=== PATIENT | female | born 1950 | race Caucasian/White ===

== ENCOUNTER 2016-02-23 06:39 | Observation (INO) | payer OTHER ==
--- NOTE | ~2016-02-23 | CR72 ---
[facility] A Service of [facility] & [facility] RADIOLOGY TEXT RESULTS PATIENT: DAIN GOULD LOCATION: [facility] [id number] : [birth year] UNIT #: [id number] AGE: [address]: Joseph May MD SEX: F ORDER DR: [id number] [facility] [address] [place], [place] [address] [id number] MR#: [id number] Acc #: [id number] NAME: DAIN GOULD. : 1950 SEX: F STUDY DATE/TIME: 02/23/2016 6:15 UNIT: [facility] ROOM: 53719 STUDY DESCRIPTION: CR Chest Single View Portable Attending Physician: Joseph May M.D. Ordering Physician: Erik Zhang M.D. Primary Care Physician: Igor Pisano M.D. MEDICAL IMAGING REPORT This report is preliminary unless electronic signature is present EXAM Portable chest INDICATION Shortness of breath for 3 hours. FINDINGS Comparison is made to prior exam from April 07, 2007. Cardiomegaly is identified although I do not see any evidence of vascular congestion. There is no pneumothorax or definite pleural effusion. There is elevation of the right hemidiaphragm with some associated bronchovascular crowding. This is stable when compared to April 07, 2007. Overall, lung volumes appear diminished slightly secondary to poor inspiratory effort. Dictated by... Tana Estevez M.D. THIS IS AN ELECTRONICALLY VERIFIED REPORT Tana Estevez M.D. at 02/23/2016 12:10 PM AFF/antonino TD: 02/23/2016 11:34 JOB #: [id number] MEDICAL IMAGING REPORT COPY
--- NOTE | ~2016-02-23 | HP ---
Unit #: [id number] #: [id number] Patient: DAIN GOULD [id number] [address] [place], [place] [address] [id number] MR#: [id number] NAME: DAIN GOULD. ROOM: 77656 Age: 65 Sex: F Admission Date: 02/23/2016 : 1950 Attending Physician: Joseph May M.D. Primary Care Physician: Igor Pisano M.D. HISTORY AND PHYSICAL ADDENDUM The patient underwent a Lexiscan Cardiolite stress test which, per Dr. May, is normal. A 2D echocardiogram has been ordered for the patient and she will be discharged after this is completed. The patient has had no more reports of chest pain in the emergency department. The patient's troponins have been negative. DISCHARGE FOLLOWUP INSTRUCTIONS 1. She will be discharged home. 2. She can follow up with Dr. Hutson in three to four weeks. 3. Healthy heart diet. 4. She is advised to quit smoking. DISCHARGE MEDICATIONS 1. Tylenol 650 mg p.o. q.6 hours p.r.n. pain. 2. Wellbutrin XL 200 mg p.o. b.i.d. 3. Tenormin 25 mg p.o. daily. 4. Lasix 20 mg p.o. daily. 5. Lipitor 10 mg p.o. at bedtime. 6. Lipitor 20 mg p.o. daily. 7. NovoLog 70/30 60 units subcu b.i.d. 8. Aspirin 81 mg p.o. daily. 9. Potassium 20 mEq p.o. daily. 10. Biotin 10,000 mcg p.o. daily. 11. Vitamin D 50,000 units p.o. weekly. Dictated by Dahlia Dorantes A.P.R.N. for Joseph May M.D. AM/fernanda TD: 02/23/2016 14:30 JOB #: [id number] Unit #: [id number] #: [id number] Patient: DAIN GOULD HISTORY AND PHYSICAL X Dahlia Dorantes APRN X HISTORY AND PHYSICAL
--- NOTE | ~2016-02-23 | EKG ---
PATIENT: DAIN GOULD UNIT #: [id number] Ventricular Rate: 77 BPM Atrial Rate: 77 BPM P-R Interval: 144 ms QRS Duration: 88 ms Q-T Interval: 410 ms QTC Calculation(Bezet): 463 ms P [place]: 4 degrees Calculated R [place]: 18 degrees Calculated T [place]: 49 degrees Diagnosis Line: Normal sinus rhythm Diagnosis Line: Nonspecific ST abnormality Diagnosis Line: Abnormal ECG Diagnosis Line: No previous ECGs available Diagnosis Line: Confirmed by OFELIA PARRA MD ([id number]) on Diagnosis Line: 02/24/2016 7:09:43 PM INTERPRETING MD: AIDA BEAR
--- NOTE | ~2016-02-23 | HP ---
Unit #: [id number] #: [id number] Patient: DAIN GOULD [id number] [address] [place], [place] [address] [id number] I MR#: [id number] NAME: DAIN GOULD. ROOM: 58284 Age: 65 Sex: F Admission Date: 02/23/2016 : 1950 Attending Physician: Joseph May M.D. Primary Care Physician: Igor Pisnao M.D. HISTORY AND PHYSICAL CHIEF COMPLAINT Chest pain. HISTORY OF PRESENT ILLNESS The patient is a 65-year-old female who does not have a flame degreaser. In 2007, the patient did undergo a cardiac catheterization by Dr. Flores and was found to have nonobstructive coronary artery disease and a normal LVEF. Additional past medical history includes hypertension, hyperlipidemia, diabetes with insulin dependence, obstructive sleep apnea with CPAP compliance, obesity, pedal edema and history of breast cancer with radiation in 2005. The patient presented to the ER this morning. The patient reports last night before she went to bed she just felt uncomfortable. She was unable to find a position that she could sleep well in. Initially, she started to have some dull left arm pain. When she got up and walked around her room, she felt a dull chest pressure, mid sternal chest pressure, that radiated to her neck. At the worst, it was 7/10. Nothing relieved her pain. The patient presented to the emergency room. The patient did not report any associated symptoms. She had no nausea, no shortness of breath, diaphoresis, palpitations or dizziness. In the emergency department, the patient received two sublingual nitro and her pain was relieved. Her EKG shows normal sinus rhythm with nonspecific ST-T wave abnormalities at 77 beats per minute. Point of care troponins have been less than 0.05 x2. PAST MEDICAL HISTORY 1. Cardiac catheterization in 2007 showed nonobstructive disease. Left main, LAD, left circumflex all have luminal irregularities. RCA is codominant with luminal irregularities. Her LVEF was also normal. 2. Diabetes with insulin dependence. 3. Hypertension. 4. Hyperlipidemia. 5. Obesity. 6. Obstructive sleep apnea with CPAP compliance. 7. Pedal edema. PAST SURGICAL HISTORY 1. Lap band in 2014 which is now not inflated. 2. Paraesophageal hernia repair in 2014. 3. Cervical diskectomy. 4. Lumbar laminectomy x2. 5. . Unit #: [id number] #: [id number] Patient: DAIN GOULD 6. Bilateral carpal tunnel syndrome. 7. Breast lumpectomy which was found to have cancer. She received radiation in 2016. ALLERGIES Penicillin and codeine. HOME MEDICATIONS 1. Zestril 20 mg p.o. daily. 2. Klor-Con 20 mEq p.o. daily. 3. Tenormin 12.5 mg p.o. daily. 4. Wellbutrin-XL 200 mg p.o. b.i.d. 5. NovoLog 70/30, 60 units subcu b.i.d. 6. Lasix 40 mg p.o. daily. 7. Vitamin D 5000 units p.o. weekly. 8. Lipitor 10 mg p.o. daily. 9. Biotin 10,000 mcg p.o. daily. 10. Aspirin 81 mg p.o. daily. FAMILY HISTORY Patient reports that her father had coronary artery disease and atrial fibrillation. 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 She denies any alcohol or illicit drug abuse. She smokes about a half a pack per day and has smoked for 40 years. She is not currently regulating her diet. REVIEW OF SYSTEMS CONSTITUTIONAL: The patient denies fever or chills. HEENT: The patient denies sore throat, ear pain or runny nose. CARDIOVASCULAR: Patient endorses chest pain. Denies irregular rhythm or palpitations. CHEST: The patient denies shortness of breath, cough or hemoptysis. GI: The patient denies nausea, vomiting, diarrhea, chronic constipation or hematochezia. ENDO: The patient denies history of increased thirst or urination. No recent significant weight loss or gain. : The patient denies dysuria, frequency or hematuria. SKIN: Denies any unusual rashes or lesions. HEMATOLOGIC: Denies any increased bleeding or bruising. MUSCULOSKELETAL: Denies any hot, swollen joints. No generalized muscle pain. NEURO: Denies problems with speech or vision. No frequent severe headaches. No numbness, tingling or weakness in any extremity. Denies loss of bowel or bladder control. Denies dizziness. PHYSICAL EXAMINATION GENERAL: The patient is a pleasant 65-year-old female who is awake, alert, in no acute distress. VITAL SIGNS: Temperature 98.3, heart rate 75, respirations 16, blood pressure 95/51. HEENT: Head is atraumatic, normocephalic. Pupils equal, round, reactive. Extraocular movements are intact. No discharge from ears or nose. NECK: Supple. Trachea is midline. CHEST: Lungs are clear to auscultation bilaterally. No wheezes, rales or rhonchi. Unit #: [id number] #: [id number] Patient: DAIN GOULD CARDIOVASCULAR: S1, S2. Regular rate and rhythm. No murmurs, rubs or gallops appreciated. ABDOMEN: Soft, nontender, nondistended. Bowel sounds are positive in all four quadrants. No hepatosplenomegaly is appreciated. : Not done. EXTREMITIES: No clubbing or cyanosis. The patient has +1 bilateral lower extremity edema. NEUROLOGICAL: The patient is alert and oriented x4. She is pleasant and conversant. No focal defects. Cranial nerves II-XII intact. DIAGNOSTIC STUDIES LABORATORY: Glucose 288, BUN 11, creatinine 1.1, sodium 135, potassium 3.6, chloride 102, CO2 25, INR 0.9. Point of care troponins in the emergency department were less than 0.05. White blood cells 11.6, hemoglobin 13, hematocrit 39.4, platelets 278. CARDIOVASCULAR: EKG shows normal sinus rhythm with nonspecific ST-T wave abnormality. ASSESSMENT 1. Chest pain. 2. Non-obstructive coronary artery disease with history of cath in 2007 with luminal irregularities. 3. Hypertension. 4. Hyperlipidemia. 5. Diabetes with insulin dependence. 6. Obesity with a body mass index greater than 30. 7. Obstructive sleep apnea with CPAP compliance. 8. Mild bilateral lower extremity edema. 9. History of breast cancer, status post radiation in 2005. 10. Family history of coronary artery disease and atrial fibrillation. 11. Tobaccoism. PLAN Will make patient NPO now and will do a Lexiscan Cardiolite stress test. Will obtain a 2D echocardiogram. Will do Accu-Cheks a.c. and h.s. Will check a TSH, lipid panel, hemoglobin A1c and will start Imdur 20 mg p.o. daily. Will give parameters for atenolol and hold for heart rate less than 60 or systolic blood pressure less than 100. Have encouraged lifestyle modifications through diet control and I have encouraged patient to quit smoking. I have discussed this case with Dr. May, he is agreeable to the above plan. Dictated by Dahlia Dorantes A.P.R.N. for Joseph May M.D. AM/fernanda TD: 02/23/2016 11:01 JOB #: [id number] Unit #: [id number] #: [id number] Patient: DAIN GOULD HISTORY AND PHYSICAL X Dahlia Dorantes APRN X HISTORY AND PHYSICAL
[~2016-02-23 06:39] MED LIST: ACTOS PO; ADDERALL 20 MG PO; ATENOLOL PO; CHANTIX PO; GLUCOVANCE PO; GLYBURIDE PO; IBUPROFEN PO; JANUVIA PO; KCL PO; LASIX PO; LISINOPRIL PO; MAXZIDE 75/50 T1 TAB PO; METFORMIN PO; NEXIUM PO; NOVOLOG MIX 70/33 ML INJ; NOVOLOG7030 SUBQ; PROTONIX PO; PROZAC PO; ULTRAM PO; WELLBUTRIN XL PO; ZOCOR PO
[2016-02-23 06:46] LABS: POC - CKMB 4.7 ng/mL (0.0-7.9); POC - TROPONIN <0.05 ng/mL (<=0.05)
[2016-02-23 06:55] LABS: BASOPHIL# 0.1 X10e3 (0-0.3); BASOPHIL% 1.1 % (0-2.5); EOSINOPHIL# 0.3 X10e3 (0-0.7); EOSINOPHIL% 2.7 % (0.0-7.0); HEMATOCRIT 39.4 % (35.0-45.0); LYMPHOCYTE# 3.8 X10e3 (1.0-3.5); LYMPHOCYTE% 32.5 % (17.0-45.0); MEAN CELL VOLUME 89.5 FL (83-96); MEAN CORPUSCULAR HEMOGLOBIN 29.6 PG (28-34); MEAN CORPUSCULAR HGB CONC 33.1 g/dL (30-36); MEAN PLATELET VOLUME 7.6 FL (6.5-11.5); MONOCYTE# 0.6 X10e3 (0-1.0); MONOCYTE% 4.9 % (3.0-12.0); NEUTROPHIL# 6.8 X10e3 (1.5-7.1); NEUTROPHIL% 58.8 % (40-75); PLATELET COUNT 278 X10e3 (140-420); RED CELL DISTRIBUTION WIDTH 13.6 % (11.0-15.5); WHITE BLOOD COUNT 11.6 X10e3 (4.0-10.5)
[2016-02-23 06:58] LABS: DIFF IND NO
[2016-02-23 07:26] LABS: ALBUMIN SERUM 3.7 g/dL (3.5-5.0); BILIRUBIN, DIRECT 0.2 mg/dL (0.0-0.2); BILIRUBIN,INDIRECT 0.3 mg/dL (0.0-0.9); BILIRUBIN,TOTAL 0.5 mg/dL (0.2-2.0); CALCIUM SERUM 8.4 mg/dL (8.4-10.2); CREATININE SERUM 1.1 mg/dL (0.6-1.4); GLOM FILT RATE Estimated 53.1 mL/min (>60); POTASSIUM 3.6 mmol/L (3.5-5.1); PROTEIN TOTAL SERUM 6.8 g/dL (6.0-8.3)
[2016-02-23] MEDS ORDERED: VITAMIN D50000 UNIT PO (08:24)
[2016-02-23] MEDS ORDERED: ATORVASTATIN CA10 MG PO (08:24)
[2016-02-23] MEDS ORDERED: BIOTIN10000 MC1 PO (08:25)
[2016-02-23] MEDS ORDERED: ASPIRIN EC81 M1 PO (08:25)
[2016-02-23 08:27] LABS: POC - CKMB 4.2 ng/mL (0.0-7.9); POC - TROPONIN <0.05 ng/mL (<=0.05)
[2016-02-23 08:32] LABS: INR 0.9; PARTIAL THROMBOPLASTIN TIME 26.8 SECONDS (23.5-31.3); PROTHROMBIN TIME (PATIENT) 9.4 SECONDS (9.6-11.5)
[2016-02-23 11:46] LABS: CHOLESTEROL 157 mg/dL (0-200); HDL CHOLESTEROL 43 mg/dL (35-95); LDL CHOLESTEROL 75 mg/dL (-130); LDL/HDL RATIO 2 RATIO (0-4); TRIGLYCERIDES 195 mg/dL (10-160)
== END 2016-02-23 14:49 | disposition home or self-care (01) | DRG 313 ==
LOC: CED 06:39 → CEDOF 09:07
PROVIDERS: Emergency Medicine; Internal Medicine Cardiovascular Disease
DX: R07.9 Chest pain, unspecified (principal); I10 Essential (primary) hypertension; E78.5 Hyperlipidemia, unspecified; E11.9 Type 2 diabetes mellitus without complications; Z79.4 Long term (current) use of insulin; I51.7 Cardiomegaly; I36.1 Nonrheumatic tricuspid (valve) insufficiency; J98.4 Other disorders of lung; E66.9 Obesity, unspecified; Z68.30 Body mass index [BMI] 30.0-30.9, adult; G47.33 Obstructive sleep apnea (adult) (pediatric); R60.0 Localized edema; Z79.82 Long term (current) use of aspirin; F17.200 Nicotine dependence, unspecified, uncomplicated; Z79.899 Other long term (current) drug therapy; Z85.3 Personal history of malignant neoplasm of breast; Z82.49 Family history of ischemic heart disease and other diseases of the circulatory system; I25.10 Atherosclerotic heart disease of native coronary artery without angina pectoris; Z88.0 Allergy status to penicillin; Z88.5 Allergy status to narcotic agent; Z98.890 Other specified postprocedural states
CPT/HCPCS: 36415; 71010; 78452; 80048; 80061; 80076; 82553; 82947; 83036; 84443; 84484; 85025; 85610; 85730; 93005; 93017; 93306; 99285; A9500; J2785